=== PATIENT | female | born 1975 | race Caucasian/White ===

== ENCOUNTER 2017-08-29 16:35 | Emergency (ER) | payer MEDICARE, SELFPAY ==
[2017-08-29 16:36] VITALS: BP 133/68; PULSE 85; RESP 18; TEMP 36.9; O2SAT 98; BMI 33.3
[2017-08-29 16:37] VITALS: BP 160/103; PULSE 71; RESP 20; TEMP 36.8; O2SAT 97; BMI 31.1
--- NOTE | 2017-08-29 16:48 | XR_ITS ---
EXAM: XR lumbar spine min 4V HISTORY: Back pain ITS.REASON: back hurts ORDERING PHYSICIAN: Ra Ray MD PATIENT AGE: 41 years COMPARISON: None FINDINGS: There is mild lumbar curvature convex right. No fracture or dislocation. No lytic or blastic change. There is some decrease in the disc space at L5-S1 suggesting mild degenerative disc disease. No lytic or blastic change. IMPRESSION: Mild lumbar scoliosis with mild degenerative disc disease at L5-S1
--- NOTE | 2017-08-29 17:18 | HMH.EDBACK ---
ED Disposition Clinical Impression: Spasm of lumbar paraspinous muscle, DJD (degenerative joint disease), Scoliosis Disposition: Home, Self-Care Condition on Discharge: Good Instructions: DI for Low Back Pain Additional Instructions: 1- rest. 2- icy hot. 3- flexeril and toradol. 4- see barbara headley in AM for a lumbar MRI. 5- return for weakness or loss of urine or bowel control. Prescriptions: Cyclobenzaprine HCl [Flexeril 10mg tablet] 10 mg PO BID 30 Days #60 tab Ketorolac Tromethamine [Toradol 10mg tablet] 10 mg PO Q12H #10 tab Referrals: Barbara Headley APRN [Primary Care Provider] - - Critical Care Critical Care Time: No Attestation: On 08/29/17, the high probability of a clinically significant, sudden or life threatening deterioration of the following system(s) required my full and direct attention, intervention and personal management. The time I documented below is in addition to time spent performing reported procedures but includes the following listed in this critical care notation. Medical Decision Making - Medical Records Medical records reviewed: Yes: I reviewed the patient's medical records. Vital Signs: 08/29/17 16:36 08/29/17 16:37 Temperature 98.5 F 98.2 F Temperature Source Oral Oral Pulse Rate [Right Brachial] 85 71 Respiratory Rate 18 20 Blood Pressure [Right Arm] 133/68 160/103 Blood Pressure Mean [Right Arm] 89 122 Blood Pressure Source [Right Arm] Automatic Cuff Automatic Cuff Blood Pressure Position [Right Arm] Supine Supine 02 Sat by Pulse Oximetry 98 97 Oxygen Delivery Method Room Air Room Air - Lab Data Lab Results 08/29/17 18:30: Sodium 143, Potassium 3.5, Chloride 109 H, Carbon Dioxide 25, Anion Gap 12.5, BUN 7, Creatinine 1.01, Estimated Creat Clear 110, Estimated GFR 61, Est GFR ( Amer) 74, Glucose 101, Magnesium 2.0 Result diagrams: 08/29/17 18:30 Orders (Tests/Meds): ED MEDICATIONS Discontinued Medications Generic Name Dose Route Start Last Admin Trade Name Freq PRN Reason Stop Dose Admin Ketorolac Tromethamine 60 mg 08/29/17 17:25 08/29/17 17:40 Toradol 60mg/2ml Vial IM 08/29/17 17:26 60 mg ONCE ONE Administration Methocarbamol 500 mg 08/29/17 16:47 08/29/17 17:41 Methocarbamol 500mg Tablet PO 08/29/17 16:48 500 mg ONCE ONE Administration - Radiology Data #1 Image(s): L-Spine Image Reviewed: Yes I reviewed the patient's radiology image, Yes I have reviewed radiologist's interpretation Preliminary Findings: Normal/NAD - [place] Inquiry Pt receiving controlled substance: No [place] was queried for this patient: No Medical Decision Making Narrative: Patient blood work was normal and x-ray revealed muscle spasm read by radiology. I repeated her neurological exam there was no focal motor deficits. The patient pain has improved but she continued to have discomfort with movement. She reported the pain is alternating between the right leg and the left. Her daughter is being seen in urgent care treatment for flu sent and they will come back and pick her up. [facility] History I have reviewed the patient's past medical history: Yes - *Social History Alcohol Intake: never - Psychiatric History Expresses thoughts of harming self/others: None Suicide Plan Description: No Plan ROS Obtained: Yes All systems reviewed & no additional complaints Physical Exam - General General appearance: alert, in no apparent distress - Head Head exam: atraumatic, normocephalic, normal inspection - Eye Eye exam: Present: normal appearance, PERRL, EOMI - ENT ENT exam: Present: normal exam, normal oropharynx, mucous membranes moist, TM's normal bilaterally, normal external ear exam - Neck Neck exam: Present: normal inspection, full ROM, trachea midline. Absent: meningismus, lymphadenopathy - Chest Chest inspection: Present: normal inspection, symmetric chest wall rise. Absent: tenderness - Respira
--- NOTE | 2017-08-29 17:21 | ED_ITS ---
ED Disposition Clinical Impression: Spasm of lumbar paraspinous muscle, DJD (degenerative joint disease), Scoliosis Disposition: Home, Self-Care Condition on Discharge: Good Instructions: DI for Low Back Pain Additional Instructions: 1- rest. 2- icy hot. 3- flexeril and toradol. 4- see barbara headley in AM for a lumbar MRI. 5- return for weakness or loss of urine or bowel control. Prescriptions: Cyclobenzaprine HCl [Flexeril 10mg tablet] 10 mg PO BID 30 Days #60 tab Ketorolac Tromethamine [Toradol 10mg tablet] 10 mg PO Q12H #10 tab Referrals: Barbara Headley APRN [Primary Care Provider] - - Critical Care Critical Care Time: No Attestation: On 08/29/17, the high probability of a clinically significant, sudden or life threatening deterioration of the following system(s) required my full and direct attention, intervention and personal management. The time I documented below is in addition to time spent performing reported procedures but includes the following listed in this critical care notation. Medical Decision Making - Medical Records Medical records reviewed: Yes: I reviewed the patient's medical records. Vital Signs: 08/29/17 16:36 08/29/17 16:37 Temperature 98.5 F 98.2 F Temperature Source Oral Oral Pulse Rate [Right Brachial] 85 71 Respiratory Rate 18 20 Blood Pressure [Right Arm] 133/68 160/103 Blood Pressure Mean [Right Arm] 89 122 Blood Pressure Source [Right Arm] Automatic Cuff Automatic Cuff Blood Pressure Position [Right Arm] Supine Supine 02 Sat by Pulse Oximetry 98 97 Oxygen Delivery Method Room Air Room Air - Lab Data Lab Results 08/29/17 18:30: Sodium 143, Potassium 3.5, Chloride 109 H, Carbon Dioxide 25, Anion Gap 12.5, BUN 7, Creatinine 1.01, Estimated Creat Clear 110, Estimated GFR 61, Est GFR ( Amer) 74, Glucose 101, Magnesium 2.0 Result diagrams: 08/29/17 18:30 Orders (Tests/Meds): ED MEDICATIONS Discontinued Medications Generic Name Dose Route Start Last Admin Trade Name Freq PRN Reason Stop Dose Admin Ketorolac Tromethamine 60 mg 08/29/17 17:25 08/29/17 17:40 Toradol 60mg/2ml Vial IM 08/29/17 17:26 60 mg ONCE ONE Administration Methocarbamol 500 mg 08/29/17 16:47 08/29/17 17:41 Methocarbamol 500mg Tablet PO 08/29/17 16:48 500 mg ONCE ONE Administration - Radiology Data #1 Image(s): L-Spine Image Reviewed: Yes I reviewed the patient's radiology image, Yes I have reviewed radiologist's interpretation Preliminary Findings: Normal/NAD - [place] Inquiry Pt receiving controlled substance: No [place] was queried for this patient: No Medical Decision Making Narrative: Patient blood work was normal and x-ray revealed muscle spasm read by radiology. I repeated her neurological exam there was no focal motor deficits. The patient pain has improved but she continued to have discomfort with movement. She reported the pain is alternating between the right leg and the left. Her daughter is being seen in urgent care treatment for flu sent and they will come back and pick her up. [facility] History I have reviewed the patient's past medical history: Yes - *Social History Alcohol Intake: never - Psychiatric History Expresses thoughts of harming self/others: None Suicide Plan Description: No Plan ROS Obta
[2017-08-29 18:50] LABS: Anion Gap 12.5 mEq/L (5-15); Blood Urea Nitrogen 7 mg/dL (7-18); Carbon Dioxide 25 mmol/L (21.0-32.0); Chloride 109 mmol/L (98-107); Creatinine Clearance Estimated 110 mL/min (0-300); Creatinine,Serum 1.01 mg/dL (0.55-1.02); Estimated Glomerular Filt Rate 61 ml/min (>60); GFR (African American) 74 ML/MIN (>60); Glucose 101 mg/dL (74-106); Potassium 3.5 mmoL/L (3.5-5.1); Sodium 143 mmol/L (136-145)
[2017-08-29 19:27] VITALS: BP 134/97; PULSE 66; RESP 18; O2SAT 100
[2017-08-29 19:37] VITALS: BP 134/97; PULSE 66; RESP 18; TEMP 36.4; O2SAT 100
== END 2017-08-29 19:37 | disposition home or self-care (01) ==
PROVIDERS: Emergency Provider Emergency Medicine; Family Provider Nurse Practitioner Family; PCP Nurse Practitioner Family
DX: M62.830 Muscle spasm of back (principal); M19.90 Unspecified osteoarthritis, unspecified site; F43.12 Post-traumatic stress disorder, chronic; Z88.6 Allergy status to analgesic agent; Z79.899 Other long term (current) drug therapy
CPT/HCPCS: 36415; 72110; 80048; 83735; 96372; 99282

== ENCOUNTER → 2019-09-06 17:44 | Outpatient (CLI) | payer MEDICARE, SELFPAY ==
[2019-09-06 18:49] LABS: Basophils # 0.1 K/mm3 (0-0.2); Eosinophils # 0.2 K/mm3 (0.0-0.4); Eosinophils % 3.4 % (0.1-12.0); Hematocrit 40.7 % (37.0-47.0); Hemoglobin 13.3 g/dL (12.2-16.2); Lymphocytes % 35.7 % (10-50); Mean Corpuscular HGB Conc 32.7 g/dL (31.8-35.4); Mean Corpuscular Hemoglobin 29.1 pg (27.0-31.2); Mean Platelet Volume 8.6 fl (7.4-10.4); Monocytes # 0.2 K/mm3 (0.1-1.0); Monocytes % 3.9 % (1.7-9.3); Neutrophils # 3.1 K/mm3 (1.8-7.8); Platelet Count 256 K/mm3 (142-424); Red Blood Count 4.57 M/mm3 (4.20-5.40); Red Cell Distribution Width 13.5 % (11.5-17.5); White Blood Count 5.5 K/mm3 (4.8-10.8)
[2019-09-06 19:54] LABS: Chloride 109 mmol/L (98-107); Sodium 141 mmol/L (136-145)
[2019-09-06 19:55] LABS: Potassium 4.1 mmoL/L (3.5-5.1)
[2019-09-06 19:57] LABS: Alanine Aminotransferase 23 U/L (12-78); Albumin Level 4.2 g/dl (3.5-5.0); Albumin/Globulin Ratio 1.4 (1.1-1.8); Alkaline Phosphatase 118 U/L (38-126); Anion Gap 14.1 mEq/L (5-15); Aspartate Amino Transferase 29 U/L (14-36); Bilirubin,Total 0.3 mg/dl (0.2-1.3); Blood Urea Nitrogen 9 mg/dl (7-17); Carbon Dioxide 22 mmol/L (22.0-30.0); Cholesterol 203 mg/dl (140-200); Estimated Glomerular Filt Rate 61 ml/min (>60); GFR (African American) 74 ML/MIN (>60); Globulin 2.9 g/dL (1.3-3.2); Total Protein,Serum 7.1 g/dl (6.3-8.2); Triglycerides 110 mg/dl (30-150); VLDL Cholesterol 22 mg/dL (0-40)
[2019-09-06 19:58] LABS: Calcium 9.7 mg/dl (8.4-10.2); Chol/HDL Ratio 5.1 (1-3.5); Glucose 78 mg/dl (74-100); HDL Cholesterol 40 mg/dl (40-60)
[2019-09-06 20:09] LABS: Direct LDL Cholesterol 143.01 mg/dL (100-129)
[2019-09-06 20:29] LABS: Thyroid Stimulating Hormone 0.79 uIU/mL (0.465-4.68)
[2019-09-10 07:03] LABS: Lamotrigine (Lamictal) 6.2 ug/mL (2.0-20.0)
== END ==
PROVIDERS: PCP Internal Medicine Adolescent Medicine; Visit Provider Internal Medicine Adolescent Medicine
DX: R55 Syncope and collapse (principal); R73.9 Hyperglycemia, unspecified; Z79.899 Other long term (current) drug therapy
CPT/HCPCS: 36415; 80053; 80061; 80168; 84443; 85025

== ENCOUNTER 2024-04-20 10:54 | Outpatient (CLI) | payer MEDICARE, SELFPAY ==
--- NOTE | 2024-04-20 11:00 | XR_ITS ---
FINAL REPORT CLINICAL HISTORY: Foot Pain COMPARISON: None FINDINGS: LEFT FOOT Three views of the left foot demonstrate no acute fracture or dislocation. The visualized joint spaces are normally aligned. The soft tissues are unremarkable. IMPRESSION: No acute bony abnormality. Reviewed, Interpreted and Dictated by Jun Fisher MD Transcribed by Olga Fenton Authenticated and [facility]
--- NOTE | 2024-04-20 11:00 | XR_ITS ---
FINAL REPORT CLINICAL HISTORY: Foot Pain COMPARISON: None FINDINGS: RIGHT FOOT 3 views of the right foot were obtained. There is no acute fracture or dislocation. Visualized joint spaces are normally aligned. Soft tissues are unremarkable. IMPRESSION: No acute bony abnormality. Reviewed, Interpreted and Dictated by Jun Fisher MD Transcribed by Olga Fenton Authenticated and [facility]
== END 2024-04-20 23:59 | disposition home or self-care (01) ==
LOC: RAD 10:56
PROVIDERS: PCP Internal Medicine; Visit Provider Podiatrist
DX: M79.671 Pain in right foot (principal); M79.672 Pain in left foot
CPT/HCPCS: 73630

== ENCOUNTER 2024-05-16 09:40 | Outpatient (CLI) | payer MEDICARE, SELFPAY ==
--- NOTE | 2024-05-16 09:46 | XR_ITS ---
PROCEDURE INFORMATION: Exam: XR Left Foot Complete; Alignment Exam date and time: 05/16/2024 9:58 AM Age: 48 years old Clinical indication: Pain; Foot; Left; Additional info: Fracture TECHNIQUE: Imaging protocol: Radiologic exam of the left foot. Views: 3 or more views. COMPARISON: No relevant prior studies available. FINDINGS: Bones/joints: Bunion and mild hallux valgus. Mild arthritic change interphalangeal joints. No fracture, dislocation or subluxation. Soft tissues: Normal. IMPRESSION: No acute abnormality.
== END 2024-05-16 23:59 | disposition home or self-care (01) ==
LOC: RAD 09:43
PROVIDERS: PCP Internal Medicine; Visit Provider Podiatrist
DX: M25.372 Other instability, left ankle (principal); S93.492S Sprain of other ligament of left ankle, sequela; S92.215G Nondisplaced fracture of cuboid bone of left foot, subsequent encounter for fracture with delayed healing
CPT/HCPCS: 73630